=== PATIENT | female | born 1955 | race Caucasian/White ===

== ENCOUNTER 2021-04-01 20:29 | Emergency (ER) | payer MEDICAID ==
[~2021-04-01] VITALS: Ht 154.9 cm; Wt 52.2 kg
--- NOTE | 2021-04-01 20:48 | NUR ---
Pt BIB [facility] from home c/o vomitting blood at home. No SOB or labored breathing. Afebrile. Denies n/v/d. Denies CP/pressure. A/O x2, sister accomopanied pt to ER.
[2021-04-01 21:00] LABS: HEMATOCRIT 28.5 % (31.2-41.9); MEAN CORPUSCULAR HEMOGLOBIN 22.4 uug (24.7-32.8); MEAN CORPUSCULAR VOLUME 72.6 fL (75.5-95.3); PLATELET COUNT (AUTO) 555 K/uL (179-408)
[2021-04-01 21:12] LABS: BILIRUBIN,DIRECT 0.1 mg/dL (0.0-0.2); BILIRUBIN,TOTAL 0.3 mg/dL (0.2-1.0); POTASSIUM 3.9 mmol/L (3.5-5.1)
[2021-04-01 21:19] LABS: *BILIRUBIN,URIN NEGATIVE (NEGATIVE); *BLOOD, URINE NEGATIVE (NEGATIVE); *CLARITY,URINE CLEAR (CLEAR); *COLOR,URINE YELLOW (YELLOW); *KETONES,URINE NEGATIVE (NEGATIVE); *UROBILINOGEN,URINE 0.2 E.U./dl (NORMAL); LEUKOCYTE ESTERASE ,URINE NEGATIVE (NEGATIVE); NITRITE, URINE NEGATIVE (NEGATIVE); PH,URINE 6.5 (5.0-8.0); UGLUCOSE 2+ (NEGATIVE)
[2021-04-01 21:23] LABS: BAND % (MANUAL) 5 % (0-10); LYMPHOCYTES % (MANUAL) 14 % (20-40); MONOCYTES % (MANUAL) 7 % (2-10); NEUTROPHILS % (MANUAL) 74 % (42-75)
--- NOTE | 2021-04-01 21:30 | NUR ---
Patient does not wish to proceed with medical care recommended by Dr. Pearson. Patient given information related to possible complications, up to and including , which could occur as a result of leaving the hospital at this time. Patient verbalizes understanding of risks involved due to leaving against medical advice. Patient has signed AMA form. Steady gait. Denies n/v/d. No c/o pain/discomfort. No RHODES. Denies CP/Pressure. A/O x2-3, sister accompanied patient.
[2021-04-01 22:57] VITALS: BP 140/70
== END 2021-04-01 21:15 | disposition left against medical advice (07) ==
LOC: ER 20:33
DX: K92.0 Hematemesis (principal); E11.65 Type 2 diabetes mellitus with hyperglycemia; Z85.038 Personal history of other malignant neoplasm of large intestine
CPT/HCPCS: 36415; 70030-TC; 85025; A4663